=== PATIENT | female | born 1960 | race Two or more races ===

== ENCOUNTER 2023-10-08 23:14 | Emergency (ER) | payer BC, OTHER ==
[~2023-10-08] VITALS: Ht 149.9 cm; Wt 72.5 kg
[2023-10-09 01:36] VITALS: BP 114/67; PULSE 72; RESP 17; TEMP 97.6; O2SAT 98
[2023-10-09] MEDS ORDERED: ONDANSETRON ODT 4 MG TAB PO ONE (02:00)
[2023-10-09] MEDS ORDERED: HYDROcodone-ACET 5/325MG TAB PO ONE (02:00)
[2023-10-09] MEDS ORDERED: AUG875T PO (02:11)
[2023-10-09] MEDS ORDERED: HYDR-4902 PO (02:11)
[2023-10-09] MEDS ORDERED: ZOFR4T PO ×2 (02:11)
== END 2023-10-09 02:20 | disposition home or self-care (01) ==
LOC: ER 23:14
DX: K02.9 Dental caries, unspecified (principal)
CPT/HCPCS: 99283; Q0162

== ENCOUNTER 2023-10-09 14:34 | Emergency (ER) | payer BC ==
[~2023-10-09] VITALS: Ht 149.9 cm; Wt 75.0 kg
[~2023-10-09 14:34] MED LIST: AUG875T PO; HYDR-4902 PO; ZOFR4T PO
[2023-10-09 15:00] VITALS: BP 139/71; PULSE 73; RESP 18; O2SAT 96
== END 2023-10-09 17:05 | disposition left against medical advice (07) ==
LOC: ER 14:34
DX: K08.89 Other specified disorders of teeth and supporting structures (principal); Z53.21 Procedure and treatment not carried out due to patient leaving prior to being seen by health care provider